=== PATIENT | female | born 1985 | race Caucasian/White ===

== ENCOUNTER 2017-12-06 20:44 | Emergency (ER) | payer OTHER ==
[~2017-12-06] VITALS: Ht 157.5 cm; Wt 59.0 kg
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
[2017-12-06] MEDS ORDERED: MIDAZOLAM HCL 2 MG/2ML VIAL IV ONE (21:00)
[2017-12-06] MEDS ORDERED: FENTANYL PF 100MCG/2ML AMPUL IV ONE (21:00)
[2017-12-06] MEDS ORDERED: ONDANSETRON HCL/PF 4 MG/2 ML VIAL IVP ONE (21:00)
[2017-12-06] MEDS ORDERED: HYDROMORPHONE INJ 2 MG/ML DISP.SYRIN IV ONE (21:00)
[2017-12-06] MEDS ORDERED: HYDROMORPHONE INJ 2 MG/ML DISP.SYRIN ONE (21:04)
[2017-12-06] MEDS ORDERED: ONDANSETRON HCL/PF 4 MG/2 ML VIAL ONE (21:04)
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
[2017-12-06] MEDS ORDERED: ACETAMINOPHEN ES 500 MG TABLET ONE (21:19)
[2017-12-06] MEDS ORDERED: ACETAMINOPHEN ES 500 MG TABLET PO ONE (21:30)
--- NOTE | 2017-12-06 21:50 | NUR ---
Shoulder immobilizer in place. Patient discharged to home in stable condition. Written and verbal after care instructions given. Patient verbalizes understanding of instruction. Patient is ambulatory with steady gait, accompanied by friend. vss. nad noted. no further complaints.
[2017-12-06 21:51] VITALS: BP 122/74
== END 2017-12-06 21:52 | disposition home or self-care (01) ==
LOC: ER 20:46
DX: S43.014A Anterior dislocation of right humerus, initial encounter (principal); V19.9XXA Pedal cyclist (driver) (passenger) injured in unspecified traffic accident, initial encounter; Y93.55 Activity, bike riding; Y92.89 Other specified places as the place of occurrence of the external cause; Y99.8 Other external cause status
CPT/HCPCS: 73020; 73030-TC; A4606; J1170; J2405; Z7610